=== PATIENT | female | born 1975 | race Caucasian/White ===

== ENCOUNTER → 2022-10-03 | Outpatient (CLI) | payer OTHER | END | disposition home or self-care (01) | LOC: RAD 07:50 | PROVIDERS: ATTEND Nurse Practitioner Family | DX: F41.9 Anxiety disorder, unspecified (principal); R05.3 Chronic cough ==

== ENCOUNTER 2024-01-31 11:58 | Emergency (ER) | payer OTHER ==
[~2024-01-31] VITALS: Ht 162.5 cm; Wt 77.1 kg
[2024-01-31] MEDS ORDERED: PREDNISONE50 MG PO (12:25)
== END 2024-01-31 12:59 | disposition home or self-care (01) ==
LOC: ED 11:58
DX: T63.441A Toxic effect of venom of bees, accidental (unintentional), initial encounter (principal); R42 Dizziness and giddiness; R11.0 Nausea; Z88.2 Allergy status to sulfonamides; Z88.6 Allergy status to analgesic agent; Z88.5 Allergy status to narcotic agent; Z91.041 Radiographic dye allergy status; Y92.89 Other specified places as the place of occurrence of the external cause

== ENCOUNTER 2024-06-05 03:26 | Emergency (ER) | payer OTHER ==
[~2024-06-05] VITALS: Ht 162.5 cm; Wt 85.7 kg
[~2024-06-05 03:26] MED LIST: PREDNISONE50 MG PO
[2024-06-05] MEDS ORDERED: methylPREDNISolone sod succ 125 MG VIAL IV ONE (03:40)
[2024-06-05] MEDS ORDERED: Albuterol Sulf/Ipratropium 3 ML VIAL NEB ONE (03:40)
[2024-06-05] MEDS ORDERED: Ondansetron4 MG PO (05:13)
[2024-06-05] MEDS ORDERED: PREDNISONE20 M1 PO (05:13)
== END 2024-06-05 05:21 | disposition home or self-care (01) ==
LOC: ED 03:26
DX: J40 Bronchitis, not specified as acute or chronic (principal); Z88.2 Allergy status to sulfonamides; Z88.6 Allergy status to analgesic agent; Z88.5 Allergy status to narcotic agent; Z91.041 Radiographic dye allergy status; Z88.8 Allergy status to other drugs, medicaments and biological substances